=== PATIENT | female | born 1945 | race African-American/Black ===

== ENCOUNTER → 2018-06-09 | Outpatient (CLI) | payer OTHER ==
[~2018-06-09] MED LIST: ALPHAGAN P5 ML OPHTHALMIC; ARTIFICIAL TEA1 EACH OPHTHALMIC; ASPIR 8181 M1 PO; ASPIR 8181 MG PO; ATORVASTATIN CA40 MG PO; BRILINTA90 MG PO; CALCIUM-MAG-ZI1 EACH PO; CINNAMON PO; CO Q-10100 MG PO; COMBIGAN EYE DR10 ML OPHTHALMIC; COZAAR 50 MG TA50 M2 PO; CRANBERRY500 M1 PO; ELIQUIS5 MG PO; FISH OIL 1,0001 EAC5 PO; HUMALOG MI100 UNIT/1 SUBQ; LANTUSSOLASTAR SUBQ; LASIX 40 MG TAB40 M1 PO; LIPITOR80 MG PO; LO-DOSE ASPIRIN81 M1 PO; LOPRESSOR25 PO; LYRICA100 MG PO; METFORMIN HCL500 MG PO; METOPROLOL SUCC25 M1 PO; MULTIVITAMINS1 EAC7 PO; NEPHROCAPS SOFT1 CAP PO; NEURONTIN 300M300 M2 PO; NITROGLYCERIN0.4 MG SUBLING; NITROSTAT0.3 MG SUBLING; NOVOLIN R100 UNIT/1 SUBQ; NOVOLOG100 UNIT/1 SUBQ; OMEPRAZOLE 20 M20 M1 PO; OMEPRAZOLE 20 M20 MG PO; PANTOPRAZOLE SO40 M1 PO; PLAVIX 75 MG TA75 M1 PO; POTASSIUM20 PO; SIMVASTATIN40 MG PO; TARKA 4-240 MG1 EACH PO; TOPROL XL50 MG PO; TRAVATAN 0.004%5 ML OPHTHALMIC; VERAPAMIL ER120 M1 PO; VITAMIN D1000 UNI1 PO; VITAMIN D400 UNI1 PO; VITAMIN E1000 UNI3 PO; VITAMINC500 PO; VYTORIN 10-201 EACH PO; VYTORIN 10-401 EACH PO; XALATAN2.5 ML OPHTHALMIC; ZANTAC 150MG T150 MG PO
--- NOTE | 2018-06-09 14:51 | 2DMMODE ---
[place] [address] 2 D/M-MODE ECHOCARDIOGRAM Name: CORRINE LOPEZ Room: [facility]#: [id number] Admission: 06/09/18 Attend Phys: Stevo Morales Discharge: Date of : 49 Date of Service: 06/09/18 1451 Report #: [id number] THIS REPORT FOR: //name// APPROVED REPORT Study performed: 06/09/2018 09:19:17 EXAM: Comprehensive 2D, Doppler, and color-flow Echocardiogram Patient Location: Out-Patient Status: routine BSA: 2.06 HR: 59 bpm BP: 118/60 mmHg Other Information Study Quality: Fair Indications CAD 2D Dimensions LVEF(%): 74.14 (>50%) IVSd: 12.51 (7-11mm) LVOT Diam: 20.19 (18-24mm) LVDd: 42.96 mm PWd: 12.17 (7-11mm) Ascending Ao: 22.82 (22-36mm) LVDs: 24.60 (25-40mm) Aortic Root: 22.43 mm Moreno's LVEF: 74.14 % Volumes Left Atrial Volume (Systole) LA ESV Index: 20.20 mL/m2 Aortic Valve AoV Peak Mejia.: 1.30 m/s AO Peak Gr.: 6.78 mmHg LVOT Max P.34 mmHg AO Mean Gr.: 4.00 mmHg LVOT Mean P.66 mmHg LVOT Max V: 0.91 m/s AO V2 VTI: 30.80 cm LVOT Mean V: 0.60 m/s DYLLAN (VTI): 2.41 cm2 LVOT V1 VTI: 23.19 cm Mitral Valve E/A Ratio: 0.71 MV Decel. Time: 225.84 [place] [address] 2 D/M-MODE ECHOCARDIOGRAM Name: CORRINE LOPEZ Room: [facility]#: [id number] Admission: 06/09/18 Attend Phys: Stevo Morales Discharge: Date of : 49 Date of Service: 06/09/18 1451 Report #: [id number] MV E Max Mejia.: 0.67 m/s MV PHT: 65.49 ms MVA (PHT): 3.36 cm2 TDI E/Lateral E': 11.17 E/Medial E': 7.44 Medial E' Mejia.: 0.09 m/s Lateral E' Mejia.: 0.06 m/s Pulmonary Valve PV Peak Mejia.: 0.68 m/s PV Peak Gr.: 1.85 mmHg Tricuspid Valve RAP Estimate: 5.00 mmHg TR Peak Gr.: 20.23 mmHg RVSP: 25.23 mmHg PA Pressure: 25.23 mmHg Left Ventricle The left ventricle is normal size. There is normal LV segmental wall motion. Mild concentric left ventricular hypertrophy. Left ventricular systolic function is normal. LVEF is 55-60%. Grade I - abnormal relaxation pattern. Right Ventricle The right ventricle is normal size. The right ventricular systolic function is normal. Atria Left atrium is borderline dilated. The right atrium size is normal. Aortic Valve The aortic valve is normal in structure. No aortic regurgitation is present. There is no aortic valvular stenosis. Mitral Valve The mitral valve is normal in structure. There is no mitral valve regurgitation noted. No evidence of mitral valve stenosis. Tricuspid Valve The tricuspid valve is normal in structure. Mild tricuspid regurgitation. Pulmonic Valve The pulmonary valve is normal in structure. There is no pulmonic [place] [address] 2 D/M-MODE ECHOCARDIOGRAM Name: LOPEZCORRINE Room: [facility]#: [id number] Admission: 06/09/18 Attend Phys: Stevo Morales Discharge: Date of : 49 Date of Service: 06/09/18 1451 Report #: [id number] Great Vessels The aortic root is normal in size. IVC is normal in size and collapses with >50% inspiration Pericardium There is no pericardial effusion. <Conclusion> Left ventricular systolic function is normal. LVEF is 55-60%. There is normal LV segmental wall motion. Mild concentric left ventricular hypertrophy. Grade I - abnormal relaxation pattern. Left atrium is borderline dilated. There is no aortic valvular stenosis. No aortic regurgitation is present. There is no mitral valve regurgitation noted. No evidence of mitral valve stenosis. Mild tricuspid regurgitation. <ELECTRONICALLY SIGNED> By: Neo Morillo MD, FACC 06/09/18 [phone] Neo Morillo MD, FACC /INF
== END ==
LOC: M.CRD 08:20
DX: I07.1 Rheumatic tricuspid insufficiency (principal); I25.10 Atherosclerotic heart disease of native coronary artery without angina pectoris; I10 Essential (primary) hypertension; I48.0 Paroxysmal atrial fibrillation

== ENCOUNTER 2018-09-14 09:04 | Observation (INO) | payer OTHER ==
[~2018-09-14] VITALS: Ht 165.1 cm; Wt 97.1 kg
[2018-09-14] VITALS (14 sets, daily range): BP systolic 142–1192; BP diastolic 55–80
[~2018-09-14 09:04] MED LIST changes: -ARTIFICIAL TEA1 EACH OPHTHALMIC; -ASPIR 8181 M1 PO; -HUMALOG MI100 UNIT/1 SUBQ; -LIPITOR80 MG PO; -NOVOLIN R100 UNIT/1 SUBQ
[2018-09-14 10:00] LABS: HEMATOCRIT 35.4 % (37.0-47.0); HEMOGLOBIN 11.1 gm/dL (12.0-15.0); MCH 24.5 pg (26.0-34.0); MCHC 31.5 g/dL (28.0-37.0); MPV 7.6 fl. (7.2-11.1); RBC 4.54 mil/uL (4.20-5.00); WBC 3.9 thou/uL (4.0-11.0)
[2018-09-14 10:08] LABS: ANION GAP 5 mmol/L (7-16); BUN 28 mg/dL (7-18); CALCIUM 9.6 mg/dL (8.5-10.1); CHLORIDE 104 mmol/L (98-107); CO2 31 mmol/L (21-32); GLUCOSE 140 mg/dL (70-99); POTASSIUM 4.1 mmol/L (3.5-5.1); SODIUM 140 mmol/L (136-145)
[2018-09-14 10:09] LABS: APTT 22.3 Seconds (25.0-31.3); PROTIME 10.4 Seconds (9.20-11.50)
[2018-09-14 10:12] LABS: ALBUMIN 3.9 g/dL (3.4-5.0); ALKALINE PHOSPHATASE 66 U/L (46-116); CHOLESTEROL 145 mg/dL (<200); HDL CHOLESTEROL 55 mg/dL (>40); LDL CHOLESTEROL 79 mg/dL (<100); SGOT 26 U/L (15-37); SGPT 35 U/L (30-65); TC:HDL 2.6 Ratio (Not establshd); TOTAL BILIRUBIN 0.5 mg/dL (<0.1-1.0); TOTAL PROTEIN 7.7 g/dL (6.4-8.2); TRIGLYCERIDE 57 mg/dL (<150); VLDL 11 mg/dL (<40)
[2018-09-14 10:13] LABS: SERUM ASSESSMENT Clear
[2018-09-14] MEDS ORDERED: HUMALOG MI100 UNIT/1 SUBQ (10:20)
[2018-09-14] MEDS ORDERED: NOVOLIN R100 UNIT/1 SUBQ (10:21)
[2018-09-14] MEDS ORDERED: VITAMINC500 PO (10:22)
[2018-09-14] MEDS ORDERED: LIPITOR80 MG PO (10:22)
[2018-09-14] MEDS ORDERED: ARTIFICIAL TEA1 EACH OPHTHALMIC (10:23)
[2018-09-14] MEDS ORDERED: ELIQUIS5 MG PO (10:24)
[2018-09-14] MEDS ORDERED: PLAVIX 75 MG TA75 M1 PO (10:26)
[2018-09-15] VITALS: BP 130/64
[2018-09-15 04:00] VITALS: BP 154/64
[2018-09-15 05:42] LABS: HEMATOCRIT 30.8 % (37.0-47.0); MCH 25.1 pg (26.0-34.0); MCHC 32.4 g/dL (28.0-37.0); MCV 77.5 fL (80.0-100.0); MPV 7.7 fl. (7.2-11.1); RBC 3.97 mil/uL (4.20-5.00); RDW-CV 17.2 % (10.5-14.5); WBC 6.8 thou/uL (4.0-11.0)
[2018-09-15 06:02] LABS: ALKALINE PHOSPHATASE 49 U/L (46-116); ANION GAP 7 mmol/L (7-16); BUN 25 mg/dL (7-18); CALCIUM 8.6 mg/dL (8.5-10.1); CHLORIDE 107 mmol/L (98-107); CO2 27 mmol/L (21-32); GLUCOSE 239 mg/dL (70-99); POTASSIUM 4.4 mmol/L (3.5-5.1); SGOT 21 U/L (15-37); SGPT 30 U/L (30-65); SODIUM 141 mmol/L (136-145); TOTAL BILIRUBIN 0.5 mg/dL (<0.1-1.0); TROPONIN-I LEVEL <0.06 ng/mL (<0.06)
[2018-09-15 08:00] VITALS: BP 146/65; BP 183/80
[2018-09-15] MEDS ORDERED: ASPIR 8181 M1 PO (09:52)
[2018-09-15] MEDS ORDERED: NITROGLYCERIN0.4 MG SUBLING (09:52)
[2018-09-15 12:28] VITALS: BP 157/86
--- NOTE | 2018-09-15 17:02 | EKG ---
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1945 Requested By: Chirag Robertson Order Number: [id number] Randa MD: Chirag Robertson Measurements Intervals [place] Rate: 56 P: 40 NV: 198 QRS: 6 QRSD: 107 T: 71 QT: 417 QTc: 403 Interpretive Statements Sinus rhythm Borderline T abnormalities, lateral leads Compared to ECG 03/04/2017 07:53:34 Poor R-wave progression no longer present T-wave abnormality still present Electronically Signed On 09-15-2018 17:01:58 CDT by Chirag Robertson [email or web address] <ELECTRONICALLY SIGNED> By: Chirag Robertson MD, FAC 09/15/18 1701 0955 0955 Chirag Robertson MD, LOCATED WITHIN [facility] /EPI
--- NOTE | 2018-09-15 17:06 | EKG ---
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1945 Requested By: Chirag Robertson Order Number: [id number] Randa MD: Chirag Robertson Measurements Intervals [place] Rate: 56 P: 74 TN: 202 QRS: -25 QRSD: 110 T: 109 QT: 432 QTc: 417 Interpretive Statements Sinus rhythm Borderline left axis deviation Anterior infarct, old Nonspecific T abnormalities, lateral leads Compared to ECG 03/04/2017 07:53:34 Myocardial infarct finding now present Poor R-wave progression persists T-wave abnormality still present Electronically Signed On 09-15-2018 17:05:55 CDT by Chirag Robertson [email or web address] <ELECTRONICALLY SIGNED> By: Chirag Robertson MD, FACC 09/15/18 1705 1339 1339 Chirag Robertson MD, FAC /EPI
--- NOTE | 2018-09-15 17:11 | EKG ---
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1945 Requested By: Chirag Robertson Order Number: [id number] Reading MD: Chirag Robertson Measurements Intervals [place] Rate: 72 P: 63 AR: 205 QRS: 18 QRSD: 106 T: 65 QT: 393 QTc: 431 Interpretive Statements Sinus rhythm Abnormal R-wave progression, late transition Compared to ECG 03/04/2017 07:53:34 Poor R-wave progression no longer present T-wave abnormality no longer present Electronically Signed On 09-15-2018 17:10:59 CDT by Chirag Robertson [email or web address] <ELECTRONICALLY SIGNED> By: Chirag Robertson MD, FACC 09/15/18 1710 0809 0809 Chirag Robertson MD, [facility] /EPI
--- NOTE | 2018-09-16 10:57 | CARD ---
[address] [address] CARDIAC CATH REPORT Name: LOPEZCORRINE B Room: [address] Christopher Villanueva#: [id number] Admission: 09/14/18 Attend Phys: Chirag Robertson MD, Discharge: 09/15/18 Date of : 49 Report #: [id number] THIS REPORT FOR: //name// APPROVED REPORT Study performed: 09/14/2018 10:47:33 Patient Details Patient Status: Out-Patient Room #: The patient is a 73 year-old female Event Personnel Chirag Robertson Student Financial Aid Manager, Blanca Amaya RN Senior Electronics Design Engineer, Cristina Edwards Monitor, Fan Martinez (R) Scrub Procedures Performed Art Access - R femoral artery* Left Heart Cath w/LT VGram [id number] LHCLV KAREN w/Atherectomy Single LAD [id number] DESATH , Right transfemoral approach Indication Positive stress test, Chest pain Risk Factors Hypercholesterolemia, Hypertension, Diabetes Previous Procedures/Diagnoses Previous PCI Admission/Lab Medications/Medications given during procedure Aspirin, Platelet Aff. Inhib., Angiomax bolus and infusion Procedure Narrative The patient was brought electively to the Cardiac Catheterization Laboratory and was prepped and draped in a sterile manner. The right femoral was infiltrated with 1% Lidocaine subcutaneous anesthesia. A [place] 6 FR sheath was inserted into the right femoral artery. Coronary angiography was performed using coronary diagnostic catheters. The right coronary system was accessed and visualized with a Diagnostic catheter. The left coronary system was accessed and visualized with a Diagnostic catheter. The left ventricle was accessed and visualized with a Diagnostic catheter. Left ventricular/Aortic Valve gradient assessed via catheter pullback. Left ventriculogram was performed in STREET projection[place] [address] CARDIAC CATH REPORT Name: CORRINE LOPEZ Kelly Room: [address]#: [id number] Admission: 09/14/18 Attend Phys: Chirag Robertson MD, Discharge: 09/15/18 Date of : 49 Report #: [id number] femoral angiogram was performed . Closure device was deployed with a Fr Angioseal STS 6Fr. The patient tolerated the procedure well and there were no complications associated with the procedure. There was no hematoma. Intraoperative Conscious Sedation Sedation start time: 1115 Case end Time: 1242 Fentanyl 250.0 mcg Versed 1 mg Dose: 2896 mGy Contrast Type and Amount: Visipaque 500 ml Coronary Angiography The patient's coronary anatomy is right dominant. Diagnostic Cath Left Main 0% narrowing LAD 80% proximal LAD stenosis with 80% mid LAD in-stent restenosis Circumflex 30% proximal narrowing with 50% mid vessel narrowing and 75% narrowing of a subbranch of the distal circumflex Right Coronary 30 percent proximal with 50% mid vessel narrowing, this being a dominant vessel Left Ventriculography The left ventricle is normal in size with normal contractility. The left ventricular ejection fraction is estimated to be 60%. Left ventricular wall motion abnormalities are not present. There is no mitral insufficiency. IVUS Intravascular Ultrasound was performed on the proximal LAD vessel. Fractional Flow [place] was performed on the 80 vessel. A 3 Guide Catheter was used to engage the ostium. Hemodynamics The aortic pressure is 139/57 mmHg with a mean of 82 mmHg. The left ventricular pressure is 147/10 mmHg with a mean of mmHg. The left ventricular end diastolic pressure is 17 mmHg. There was no gradient across the aortic valve upon pullback. PCI Technique Lesion Anticoagulation was achieved with Angiomax. Percutaneous coronary intervention was performed on the mid left anterior descending artery segment. The lesion stenosis prior to intervention was 80% [place] [address] CARDIAC CATH REPORT Name: CORRINE LOPEZ Room: [address] Christopher Villanueva#: [id number] Admission: 09/14/18 Attend Phys: Chirag Robertson MD, Discharge: 09/15/18 Date of : 49 Report #: [id number] flow. A 6FR XB LAD 3.0 100CM Guide Catheter was used to engage the ostium. A IG: BMW 190cm Interventional Guidewire was used to cross the lesion. BALLOON DILATION A Balloon catheter NC Trek RX 2.25x12 was inserted and inflated up to 16.00atm for 14seconds. Additional Inflation: 18.00atm for 11seconds. Angiosculpt 2.5x 10mm cutting balloon inflated 6 ludy for 20 seconds. Additional Inflation of 8 ludy for 20 seconds. Additional inflation of 9 ludy for 23 seconds. Additional Inflation for 10 ludy for 14 seconds. STENT DEPLOYMENT A drug-eluting stent Xience Alpine RX 2.25X12 was inserted and inflated up to 18.00atm for 7seconds. Additional Inflation: 18atm for 12seconds. Final angiography reveals 0 % stenosis with LIS 3 flow. PCI Technique Lesion Percutaneous coronary intervention was performed on the proximal LAD. The lesion stenosis prior to intervention was 80% with LIS 3 flow. STENT DEPLOYMENT A drug-eluting stent Xience Alpine RX 3.0X8 was inserted and inflated up to 14.00atm for 8seconds. Additional Inflation: 17.00atm for 8seconds. Additional Inflation: 18.00atm for 8seconds. Final angiography reveals 15 % stenosis with LIS 3 flow. Conclusion #1 coronary artery disease characterized by the following: A 80% proximal LAD stenosis with 80% mid vessel in-stent restenosis B nondominant circumflex with 30% proximal and 50% mid and 75% distal sub- branch narrowings C dominant right coronary artery with 30% proximal and 50% mid vessel narrowing #2 mild systemic systolic hypertension with mild elevation of left ventricular end-diastolic [place] [address] CARDIAC CATH REPORT Name: CORRINE LOPEZ Room: [address] Christopher Villanueva#: [id number] Admission: 09/14/18 Attend Phys: Chirag Robertson MD, Discharge: 09/15/18 Date of : 49 Report #: [id number] #3 successful atherotomy/atherectomy with stenting of the mid LAD at the site of 80% stenosis with 0% residual narrowing #4 successful percutaneous coronary intervention with deployment of a drug-eluting stent at the site of 80% proximal LAD stenosis with 10% residual narrowing and LIS-3 flow the distal vessel Recommendations Daily ASA with Plavix for at least one year Cardiac Risk Reduction Program Medications Administered Aspirin (any) Clopidogrel Diagnostic Cath Approved by: Chirag Robertson MD Date/Time: 09/16/2018 10:55:10 <ELECTRONICALLY SIGNED> By: Chirag Robertson MD, FACC 09/16/18 1057 1057 1057Chirag Robertson MD, FACC /INF
--- NOTE | 2018-09-16 16:04 | H ---
[address] [place] [address] [address] HISTORY AND PHYSICAL Name: CORRINE LOPEZ Kelly Room: [address] Christopher Villanueva#: [id number] Admission: 09/14/18 Attend Phys: Chirag Robertson MD, Discharge: 09/15/18 Date of : 49 Report #: [id number] THIS REPORT FOR: //name// CC: Chirag Weston DATE OF SERVICE: 09/14/2018 HISTORY OF PRESENT ILLNESS: The patient is a very pleasant 73-year-old female with known coronary artery disease status post multivessel stenting with most recent stenting of the LAD 18 months ago. Recently, she has noted chest discomfort with exertion. There is a history of hypertension, type 2 diabetes and hyperlipoproteinemia. The patient underwent recent nuclear stress testing, which demonstrated anteroapical ischemia. Past medical history is remarkable for hypertension, hypercholesterolemia, type 2 diabetes and atrial fibrillation treated with oral anticoagulation with Eliquis. She has been maintained on single antiplatelet therapy with Plavix and Eliquis in the context of prior atrial fibrillation. MEDICATIONS: Additional cardiac medicines include atorvastatin 80 mg daily, furosemide 40 mg daily, insulin both NPH and regular in varying doses, losartan 25 mg daily, metformin 1000 mg daily, metoprolol 25 mg b.i.d., multivitamins, and verapamil sustained release 120 mg daily. PAST MEDICAL HISTORY: Remarkable for diabetes, hypertension and weight excess. SOCIAL HISTORY: The patient lives by herself. She has 1 son and 1 daughter. She neither drinks nor smokes. REVIEW OF SYSTEMS: Remarkable for the following: PULMONARY: She had a relatively recent pneumonia and required hospitalization in [place] for same. CARDIOVASCULAR: She has in addition to the aforementioned chest discomfort, prior atrial fibrillation, has been anticoagulated with Eliquis. ALLERGIC AND IMMUNOLOGIC: She denies medication allergies. PHYSICAL EXAMINATION: GENERAL: Demonstrates an overweight elderly black female, in no acute distress. VITAL SIGNS: Blood pressure 150/70, pulse rate 74, respirations are 18 [place] [address] HISTORY AND PHYSICAL Name: CORRINE LOPEZ Kelly Room: [address] Christopher Villanueva#: [id number] Admission: 09/14/18 Attend Phys: Chirag Robertson MD, Discharge: 09/15/18 Date of : 49 Report #: [id number] NECK: Jugular venous pressure is normal with carotids being 1-2+. HEENT: No scleral icterus. No thyromegaly. Oral mucosa is moist. CHEST: Clear. CARDIAC: Reveals normal first and second heart sounds with a soft systolic murmur and a question of an S4 gallop. ABDOMEN: Modestly obese and nontender. EXTREMITIES: Without edema with intact femoral, pedal and radial pulses. DIAGNOSTIC DATA: Recent nuclear stress test revealed inducible anteroapical ischemia. IMPRESSION: 1. Recent chest pain suggesting recurrent angina. 2. Abnormal nuclear stress test with inducible anteroapical ischemia. 3. Coronary artery disease status post multivessel percutaneous coronary intervention remotely. 4. Hypercholesterolemia. 5. Type 2 diabetes. 6. History of paroxysmal atrial fibrillation. 7. Weight excess. RECOMMENDATIONS: Given the aforementioned clinical scenario with recurrent chest pain suggesting recurrent angina and an abnormal nuclear stress test with a moderate to large anteroapical induced ischemic defect, I would recommend proceeding with recatheterization to document current coronary anatomy and prospects for subsequent therapeutic intervention. The procedure and risks have been discussed with the patient. <ELECTRONICALLY SIGNED> By: Chirag Robertson MD, FACC 09/16/18 1604 1407 1421Joxi Robertson MD, FACC /nt
--- NOTE | 2018-09-16 16:05 | D ---
[facility] [address] [place] [address] DISCHARGE SUMMARY Name: CORRINE LOPEZ Room: [address] Christopher Villanueva#: [id number] Admission: 09/14/18 Attend Phys: Chirag Robertson MD, Discharge: 09/15/18 Date of : 49 Report #: [id number] THIS REPORT FOR: //name// CC: Chirag Weston DATE OF SERVICE: 09/15/2018 FINAL DISCHARGE DIAGNOSES: 1. Coronary artery disease. 2. Recently abnormal nuclear stress test. 3. Status post atherectomy with stenting of the mid left anterior descending and stenting of the proximal left anterior descending. 4. Paroxysmal atrial fibrillation. 5. Hypertension. 6. Hyperlipoproteinemia. 7. History of transient ischemic attack. 8. Type 2 diabetes. PROCEDURES: 09/14/2018 -- left heart catheterization, left ventriculography, selective coronary arteriography, and atherectomy with stenting of the mid LAD with stenting of the proximal LAD. HISTORY OF PRESENT ILLNESS: The patient is a very pleasant 73-year-old black female with longstanding coronary artery disease status post remote multivessel stenting, most recently in 03/2017. Recently, she was noted to have some chest heaviness and fullness and a nuclear stress test demonstrated inducible anteroapical ischemia. The patient has a history of hypertension, hyperlipoproteinemia, paroxysmal atrial fibrillation and prior TIA. She also has type 2 diabetes. The patient underwent cardiac catheterization with stenting of the proximal LAD and atherectomy with stenting of the mid LAD. There was a good angiographic result with a 10 and 0% residual narrowing respectively in the proximal and mid LAD site and LIS 3 flow in the distal vessel. There was modest circumflex and right coronary disease, which did not require intervention. The patient did well post-procedurally and there was good hemostasis of the right femoral site of catheterization. LABORATORY DATA: On 09/15/2018 revealed sodium of 141, potassium 4.4, BUN 25, creatinine 1.0. Hemoglobin 10.0, white blood cell count 6800, platelets 267,000. DISCHARGE MEDICATIONS: The patient was discharged to home on 09/15/2018 [place] [address] DISCHARGE SUMMARY Name: DEVON LOPEZYCE Kelly Room: [address] Christopher Villanueva#: [id number] Admission: 09/14/18 Attend Phys: Chirag Robertson MD, Discharge: 09/15/18 Date of : 49 Report #: [id number] apixaban 5 mg b.i.d. in the context of prior atrial fibrillation, ascorbic acid 500 mg daily, atorvastatin 80 mg daily, Alphagan eyedrops one drop t.i.d., Plavix 75 mg daily with a 600 mg florecita-procedural dose, artificial tears daily, furosemide 40 mg daily, Humalog 75/25 NPL insulin 50 units subcutaneously at bedtime, regular insulin a.c., Xalatan eyedrops, metformin 1000 b.i.d. to be resumed on 09/17/2018, metoprolol 25 mg b.i.d., multivitamins, fish oil 1000 mg b.i.d., ranitidine 150 mg b.i.d., verapamil 120 mg sustained release daily and p.r.n. sublingual nitroglycerin. I will plan to see her in the office in 4-6 weeks. <ELECTRONICALLY SIGNED> By: Chirag Robertson MD, FACC 09/16/18 1605 1326 1359Joxi Robertson MD, FACC /nt
== END 2018-09-15 13:32 | disposition home or self-care (01) ==
LOC: M.CL 09:04 → M.2W 13:05 → M.TBA-CV 13:05 → M.2W 16:20
PROVIDERS: ADMIT Internal Medicine
DX: I25.119 Atherosclerotic heart disease of native coronary artery with unspecified angina pectoris (principal); I48.0 Paroxysmal atrial fibrillation; E78.00 Pure hypercholesterolemia, unspecified; I10 Essential (primary) hypertension; I25.89 Other forms of chronic ischemic heart disease; E11.9 Type 2 diabetes mellitus without complications; E66.3 Overweight; Z79.01 Long term (current) use of anticoagulants; Z79.02 Long term (current) use of antithrombotics/antiplatelets; Z79.4 Long term (current) use of insulin; Z86.73 Personal history of transient ischemic attack (TIA), and cerebral infarction without residual deficits

== ENCOUNTER → 2020-02-15 | Outpatient (CLI) | payer OTHER ==
[~2020-02-15] MED LIST changes: +ARTIFICIAL TEA1 EACH OPHTHALMIC; +ASPIR 8181 M1 PO; +HUMALOG MI100 UNIT/1 SUBQ; +LIPITOR80 MG PO; +NOVOLIN R100 UNIT/1 SUBQ
--- NOTE | 2020-02-15 13:30 | 2DMMODE ---
[place] [address] 2 D/M-MODE ECHOCARDIOGRAM Name: CORRINE LOPEZ Room: [facility]#: [id number] Admission: 02/15/20 Attend Phys: Stevo Morales Discharge: Date of : 49 Date of Service: 02/15/20 1328 Report #: [id number] THIS REPORT FOR: cc: Ezequiel Weston MD, Ram MD Liston, Michael J. MD [facility] ~ APPROVED REPORT Study performed: 02/15/2020 09:37:38 EXAM: Comprehensive 2D, Doppler, and color-flow Echocardiogram Patient Location: Out-Patient BSA: 2.06 HR: 62 bpm BP: 152/92 mmHg Other Information Study Quality: Fair Indications CAD Hypertension/HDD 2D Dimensions IVSd: 11.56 (7-11mm) LVOT Diam: 19.79 (18-24mm) LVDd: 38.71 mm PWd: 12.46 (7-11mm) Ascending Ao: 24.74 (22-36mm) LVDs: 21.93 (25-40mm) Aortic Root: 28.89 mm Volumes Left Atrial Volume (Systole) LA ESV Index: 13.50 mL/m2 Aortic Valve AoV Peak Mejia.: 1.32 m/s AO Peak Gr.: 6.97 mmHg LVOT Max P.14 mmHg AO Mean Gr.: 3.72 mmHg LVOT Mean P.50 mmHg LVOT Max V: 0.89 m/s AO V2 VTI: 28.26 cm LVOT Mean V: 0.56 m/s DYLLAN (VTI): 2.06 cm2 LVOT V1 VTI: 18.90 cm [place] [address] 2 D/M-MODE ECHOCARDIOGRAM Name: CORRINE LOPEZ Room: [facility]#: [id number] Admission: 02/15/20 Attend Phys: Stevo Morales Discharge: Date of : 49 Date of Service: 02/15/20 1328 Report #: [id number] E/A Ratio: 0.74 MV Decel. Time: 217.55 ms MV E Max Mejia.: 0.66 m/s MV PHT: 63.09 ms MVA (PHT): 3.49 cm2 TDI E/Lateral E': 13.20 E/Medial E': 8.25 Medial E' Mejia.: 0.08 m/s Lateral E' Mejia.: 0.05 m/s Pulmonary Valve PV Peak Mejia.: 0.81 m/s PV Peak Gr.: 2.63 mmHg Left Ventricle The left ventricle is normal size. There is normal LV segmental wall motion. Mild concentric left ventricular hypertrophy. Left ventricular systolic function is normal. LVEF is 55-60%. Grade I - abnormal relaxation pattern. Right Ventricle The right ventricle is normal size. The right ventricular systolic function is normal. Atria The left atrium size is normal. The right atrium size is normal. Aortic Valve The aortic valve is normal in structure. No aortic regurgitation is present. There is no aortic valvular stenosis. Mitral Valve The mitral valve is normal in structure. There is no mitral valve regurgitation noted. No evidence of mitral valve stenosis. Tricuspid Valve The tricuspid valve is normal in structure. There is no tricuspid valve regurgitation noted. Pulmonic Valve The pulmonary valve is normal in structure. There is no pulmonic valvular regurgitation. Great Vessels The aortic root is normal in size. The inferior vena cava [place] [address] 2 D/M-MODE ECHOCARDIOGRAM Name: CORRINE LOPEZ Room: [facility]#: [id number] Admission: 02/15/20 Attend Phys: Stevo Morales Discharge: Date of : 49 Date of Service: 02/15/20 1328 Report #: [id number] visualized. Pericardium There is no pericardial effusion. <Conclusion> The left ventricle is normal size. Mild concentric left ventricular hypertrophy. Left ventricular systolic function is normal. LVEF is 55-60%. Grade I - abnormal relaxation pattern. <ELECTRONICALLY SIGNED> By: Maged Curry MD, FACC 02/15/20 1328 1328 1328 Maged Curry MD, FACC /INF
== END ==
LOC: M.CRD 09:42
DX: I11.9 Hypertensive heart disease without heart failure (principal); I25.10 Atherosclerotic heart disease of native coronary artery without angina pectoris; Z88.2 Allergy status to sulfonamides

== ENCOUNTER 2021-05-29 19:12 | Emergency (ER) | payer OTHER ==
[~2021-05-29] VITALS: Ht 167.6 cm; Wt 104.3 kg
--- NOTE | ~2021-05-29 | EMS ---
[place] [address] EMS Patient Care Report Name: ROSETTA LOPEZ [id number] Admission: 05/29/21 Attend Phys: Discharge: Date of : 49 Report #: [id number] THIS REPORT FOR: //name// Report Transmitted: 05/29/2021 19:05 EMS Care Summary [facility] Incident [id number] @ 05/29/2021 17:51 Incident Location [address] [place] [address] Patient ROSETTA LOPEZ Female, 76 Years 1945 Patient Address [address] [place] [address] Patient Allergies Other drug allergy, Patient Medications Eliquis, Amlodipine, Carvedilol, Insulin, Atorvastatin, Clopidogrel, ASA, Isosorbide, Gabapentin, Furosemide, Chief Complaint Hypoglycemia Disposition Transported No Lights/[place] Dispatch Reason Altered Mental Status Transported To [facility] Narrative [facility] was dispatched to a local residence for a patient who was unresponsive, but breathing. [facility] responded from the station and arrived on scene without incident. [place] [id number] EMS Patient Care Report Name: ROSETTA LOPEZ Room: [facility]#: [id number] Admission: 05/29/21 Attend Phys: Discharge: Date of : 49 Report #: [id number] Upon arrival to the scene, the patient, (Rosetta Lopez) was found lying on her left side in bed. Rosetta was responsive to painful stimuli, but would follow commands when prompted. She was noted to be incontinent of urine, and she had a significant amount of drool noted on the pillow she was lying on. Rosetta's daughter, (Liza) was on scene. She stated that Rosetta has a history of diabetes. [place] initial blood glucose was found as documented in the vitals tab. An IV was administered as documented in the flowchart of this report, and she was treated with Dextrose 10% (D10) ad documented in the flowchart of this report, in order to address the hypoglycemia. Following the administration of the D10, Rosetta's mental status improved to normal levels. Rosetta woke up, and then stated she needed to go to the bathroom. Rosetta was assisted to her bedside commode, where she began to urinate. She then began to complain of left shoulder pain. She stated the pain was a 9/10, and described it as aching. She stated that moving and palpation made the pain worse. She denied anything making it any better, and stated it was constant. She was unsure when the pain began. Rosetta was assisted to a standing position with a team lift, and was then placed on the cot. She was placed in the semi-juarez's position, covered with a blanket, and all seat belts were applied. Rosetta was taken to the ambulance and loaded without incident. Once Rosetta was in the back of the ambulance, Rosetta again stated that her left shoulder hurt. She was placed on the cardiac cath lab technologist, and 5-Lead and 12-Lead EKGs were obtained. The cardiac cath lab technologist showed a sinus rhythm without ectopy or elevation. Following the EKGs, the patient advised that she had allergies, but was unsure what those allergies were. Liza had already left the scene, so the allergies were unable to be obtained. Therefore, the advanced life support pain management pathway per [facility] was unable to be implemented. Non-emergency transport to the hospital began. During transport, an ice pack was placed on the patients shoulder to help ease the pain, however, she stated it was cold and that she did not want that on her any longer. It was removed. The patient's condition remained unchanged during transport. Report was called to the receiving hospital. Upon arrival to the hospital, Rosetta was unloaded from the ambulance and taken inside of the facility. She was taken into the appropriate room, and was then transferred to the hospital bed. Report was given to nursing staff, signatures were obtained, and patient care was transferred. [facility] returned to service upon entering coverage area. Initial Vitals @18:06P: 90,R: 14,BP: 140/70,GCS: 15,Glucose: 36,SpO2: 98,Revised Trauma: 12, @18:51P: 99,R: 14,BP: 137/110,GCS: 15,SpO2: 99,Revised Trauma: 12, @19:01P: 92,R: 14,BP: 134/57,GCS: 15,SpO2: 97,Revised Trauma: 12, [address] [place] [address] EMS Patient Care Report Name: ROSETTA LOPEZ Room: [facility]#: [id number] Admission: 05/29/21 Attend Phys: Discharge: Date of : 49 Report #: [id number] @18:31P: 105,R: 14,BP: 139/71,Pain: 9/10,GCS: 15,Glucose: 136,SpO2: 96,Revised Trauma: 12, @18:34P: 101,R: 14,Pain: 9/10,GCS: 15,SpO2: 98, Assessments @18:03MENTAL:Confused,Person Oriented,SKIN:Diaphoresis,HEENT:Eyes: Left Pupil: 3-mm,Eyes: Right Pupil: 3-mm,LUNG SOUNDS:ABDOMEN:PELVIS//GI:Incontinence,EXTREMITIES:Capillary Refill: Right Upper: < 2 Sec,PULSE:Radial: 2+ Normal,NEURO:@18:50MENTAL:Time Oriented,Event Oriented,Place Oriented,Person Oriented,SKIN:HEENT:Eyes: Left Pupil: 3-mm,Eyes: Right Pupil: 3-mm,LUNG SOUNDS:ABDOMEN:PELVIS//GI:EXTREMITIES:Left Arm: No Abnormalities,Right Arm: No Abnormalities,Left Leg: No Abnormalities,Right Leg: No Abnormalities,PULSE:NEURO: Impression Diabetic Hypoglycemia Procedures @18:05D10W 250cc (20 ga) Site: Forearm-LeftResponse: ImprovedSucceeded@18:06Dextrose 10% - 25 Grams (gms) - Intravenous (IV)Response: Improved@18:04ALS AssessmentResponse: UnchangedSucceeded@18:3412-Lead ECGResponse: UnchangedSucceeded Timeline 17:50,Call Received 17:51,Dispatched 17:53,En Route 17:56,On Scene 17:58,At Patient 18:04,ALS Assessment,Response: UnchangedSucceeded, 18:05,D10W 250cc 20 ga Site: Forearm-Left,Response: ImprovedSucceeded, 18:06,Dextrose 10% - 25 Grams (gms) - Intravenous (IV),Response: Improved 18:06,BP: 140/70 M,PULSE: 90,RR: 14 R,SPO2: 98 Ox,ETCO2: ,B,PAIN: ,GCS: 15, 18:31,BP: 139/71 M,PULSE: 105,RR: 14 R,SPO2: 96 Ox,ETCO2: ,B,PAIN: 9,GCS: 15, 18:34,12-Lead ECG,Response: UnchangedSucceeded, 18:34,BP: / M,PULSE: 101,RR: 14 R,SPO2: 98 Ox,ETCO2: ,BG: ,PAIN: 9,GCS: 15, 18:35,Depart Scene 18:51,BP: 137/110 M,PULSE: 99,RR: 14 R,SPO2: 99 Ox,ETCO2: ,BG: ,PAIN: ,GCS: 15, 19:01,BP: 134/57 M,PULSE: 92,RR: 14 R,SPO2: 97 Ox,ETCO2: ,BG: ,PAIN: ,GCS: 15, 19:10,At Destination 19:48,Call Closed Disclaimer v1.1 Copyright 2020 [place] [address] EMS Patient Care Report Name: ROSETTA LOPEZ Room: [facility]#: [id number] Admission: 05/29/21 Attend Phys: Discharge: Date of : 49 Report #: [id number] This EMS Care Summary contains data elements from the applicable legal record (which may be displayed differently). It is designed to provide pertinent information for the following purposes: continuity of care, clinical quality, and state data reporting. The complete legal record is available to ED staff and administrators of the receiving hospital in [facility]'s Patient Tracker. All data is provided "as is."
[2021-05-29 19:36] LABS: URINE BILIRUBIN NEGATIVE (Negative); URINE CLARITY CLEAR; URINE COLOR YELLOW; URINE LEUKOCYTES-REFLEX NEGATIVE (Negative); URINE NITRITE-REFLEX NEGATIVE (Negative); URINE UROBILINOGEN 0.2 E.U./dl (0.2-1.0)
[2021-05-29] MEDS ORDERED: MONTELUKAST SODI4 M1 PO (19:43)
[2021-05-29] MEDS ORDERED: HUMULIN N100 UNIT/1 SUBQ (19:43)
[2021-05-29] MEDS ORDERED: COZAAR 25 MG TA25 M1 PO (19:44)
[2021-05-29] MEDS ORDERED: ISOSORBIDE DINI30 MG PO (19:44)
[2021-05-29] MEDS ORDERED: NEURONTIN100 MG PO (19:45)
[2021-05-29] MEDS ORDERED: CARVEDILOL25 MG PO (19:45)
[2021-05-29] MEDS ORDERED: ELIQUIS5 MG (19:45)
[2021-05-29] MEDS ORDERED: PEPCID AC20 MG PO (19:46)
[2021-05-29] MEDS ORDERED: TYLENOL325 M1 PO (19:46)
[2021-05-29 19:48] LABS: ABSOLUTE BASOPHILS 0.1 thou/uL (0.0-0.2); ABSOLUTE LYMPHOCYTES 1.1 thou/uL (0.8-5.3); ABSOLUTE MONOCYTES 0.4 thou/uL (0.0-1.2); ABSOLUTE NEUTROPHILS 6.8 thou/uL (1.6-8.1); BASOPHILS 0.7 %; EOSINOPHILS 0.2 %; HEMATOCRIT 41.6 % (37.0-47.0); HEMOGLOBIN 14.1 gm/dL (12.0-15.0); LYMPHOCYTES 13.1 %; MCH 27.8 pg (26.0-34.0); MCHC 33.9 g/dL (28.0-37.0); MCV 82.1 fL (80.0-100.0); MONOCYTES 4.5 %; MPV 7.5 fl. (7.2-11.1); NUCLEATED RBCS 0 /100WBC; PLATELET COUNT* 328 thou/uL (150-400); POLYS 81.5 %; RBC 5.07 mil/uL (4.20-5.00); RDW-CV 15.4 % (10.5-14.5); WBC 8.4 thou/uL (4.0-11.0)
[2021-05-29 19:57] LABS: CALCIUM 9.6 mg/dL (8.5-10.1); CREATININE 0.8 mg/dL (0.6-1.3); POTASSIUM 4.9 mmol/L (3.5-5.1)
[2021-05-29 20:10] LABS: ALBUMIN 4.3 g/dL (3.4-5.0); TOTAL PROTEIN 8.7 g/dL (6.4-8.2)
[2021-05-29 21:00] LABS: URINE RBC >20 Many /HPF (0-2); URINE WBC-REFLEX 0-5 Rare /HPF (0-5)
[2021-05-29 21:01] LABS: BACTERIA-REFLEX 1-9 Few /HPF (None Seen); CRYSTALS None Seen /LPF (None Seen)
[2021-05-29 21:08] LABS: URINE GLUCOSE-RANDOM TRACE (Negative); URINE PROTEIN 2+ (Negative)
[2021-05-29 21:09] LABS: URINE BLOOD 3+ (Negative); URINE KETONES TRACE (Negative)
[2021-05-29 21:10] LABS: CASTS None Seen /LPF (None Seen)
[2021-05-29 21:14] VITALS: BP 149/81
[2021-05-29] MEDS ORDERED: CEPHALEXIN500 MG PO (21:20)
--- NOTE | 2021-05-30 09:31 | EKG ---
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 05/30/21 0931 1950 1950 Amadou Allen MD, [facility] /EPI
[2021-05-30] MEDS ORDERED: NORVASC5 M1 PO (22:13)
[2021-05-30] MEDS ORDERED: SINGULAIR 10 MG10 MG PO (22:16)
[2021-05-30] MEDS ORDERED: TIMOLOL 0.5%-LAT5 ML OPHTHALMIC (22:23)
== END 2021-05-29 21:39 | disposition home or self-care (01) ==
LOC: M.ERS 19:12
PROVIDERS: Personal Emergency Response Attendant
DX: E11.649 Type 2 diabetes mellitus with hypoglycemia without coma (principal); N39.0 Urinary tract infection, site not specified; I10 Essential (primary) hypertension; M19.90 Unspecified osteoarthritis, unspecified site; E78.5 Hyperlipidemia, unspecified; E66.9 Obesity, unspecified; Z68.37 Body mass index [BMI] 37.0-37.9, adult; Z86.73 Personal history of transient ischemic attack (TIA), and cerebral infarction without residual deficits; Z98.51 Tubal ligation status; Z90.49 Acquired absence of other specified parts of digestive tract; Z95.5 Presence of coronary angioplasty implant and graft; Z79.4 Long term (current) use of insulin; Z88.2 Allergy status to sulfonamides; Z88.1 Allergy status to other antibiotic agents; Z88.8 Allergy status to other drugs, medicaments and biological substances

== ENCOUNTER 2021-05-30 14:57 | Inpatient (IN) | payer OTHER ==
[~2021-05-30] VITALS: Ht 165.1 cm; Wt 105.7 kg
--- NOTE | ~2021-05-30 | CON ---
[facility] [address] [place] [address] CONSULTATION Name: CORRINE LOPEZ Kelly Room: [address] IN M.R.#: [id number] Admission: 05/30/21 Attend Phys: Diomedes Orozco Discharge: Date of : 49 Report #: [id number] THIS REPORT FOR: cc: Ezequiel Weston MD, Ram MD Khosla,Fadi Avalos MD ~ DOC #: [id number] Fadi Jordan MD DATE OF CONSULTATION: 05/31/2021 HISTORY OF PRESENT ILLNESS: A 76-year-old female patient who was evaluated by me for an episode of speech difficulty. The patient was discussed with Dr. Jeffries, who kindly updated me on this patient's history. This patient was admitted with an episode of aphasia and confusion that has resolved. She said that she had multiple TIAs before. She told me that she does not have any speech difficulty with those TIA. The patient feels back to her baseline. She is somewhat of a poor historian and could not give all the answer, but she is a very pleasant individual. She has a history of hypertension, hyperlipidemia, diabetes, diabetic neuropathy, obesity, coronary artery disease, multiple TIAs, osteoarthritis. I asked her if she has atrial fibrillation and why she is on anticoagulation, she could not tell me. In fact, she is on a combination of anticoagulation and dual antiplatelet therapy. She denies any new eye, ENT, cardiac, respiratory, GI, , musculoskeletal, constitutional, dermatological, hematological, psychiatric, throat, allergic symptom associated with present symptomatology. PAST MEDICAL HISTORY: Positive for TIA. FAMILY HISTORY: Negative for early age stroke. SOCIAL HISTORY: She says she does not drink alcohol. PHYSICAL EXAMINATION: NEUROLOGIC: The patient's examination indicates she is alert. She is responsive. She is able to follow simple commands, somewhat poor historian but she tries her best. She thinks her memory and fund of knowledge is at her baseline. Cranial nerve examinations appear unremarkable. Neuromuscular examination is symmetrical, but reflexes are absent in the lower extremities. She says she can feel the touch on both sides. Tone looks symmetrical. She does not have any ataxia in the upper extremity. There is no meningeal sign. GENERAL: She is morbidly obese. HEENT: Her hearing and vision looks adequate. VITAL SIGNS: Blood pressure is 160/79, pulse is 75, temperature is 97.7. EXTREMITIES: Pulses are difficult to feel, but she has no edema, [place]osis [place] [address] CONSULTATION Name: CORRINE LOPEZ Room: [address]#: [id number] Admission: 05/30/21 Attend Phys: Diomedes Orozco Discharge: Date of : 49 Report #: [id number] NECK: There is no thyroid mass. There is no carotid bruit. CARDIAC: Unremarkable. LUNGS: No respiratory difficulty was noticed. LABORATORY AND DIAGNOSTIC DATA: White count is 6.6. Her GFR is 59, but BUN is somewhat high and 26. IMPRESSION: History of transient ischemic attack with possible another episode of transient ischemic attack. Looking at the records, it does not look like she had a recent CT angiogram and I will get it done to make sure there is no pathology there. She is on dual antiplatelet therapy and anticoagulation, the question need to be addressed whether she needs to be on all those, that I will defer to admitting physician and the family doctor or whoever is prescribing that. I will check an EEG in this patient because she has multiple episodes where the workup has been unremarkable to make sure they are not nonconvulsive seizure. Thank you very much for this referral and if you have any questions, please feel free to contact me. Fadi Jordan MD PK/ORL By: 1342 1532Pkody Jordan MD /nt
[~2021-05-30 14:57] MED LIST changes: +CARVEDILOL25 MG PO; +CEPHALEXIN500 MG PO; +COZAAR 25 MG TA25 M1 PO; +ELIQUIS5 MG; +HUMULIN N100 UNIT/1 SUBQ; +ISOSORBIDE DINI30 MG PO; +MONTELUKAST SODI4 M1 PO; +NEURONTIN100 MG PO; +PEPCID AC20 MG PO; +TYLENOL325 M1 PO
[2021-05-30 15:48] LABS: ABSOLUTE BASOPHILS 0.1 thou/uL (0.0-0.2); ABSOLUTE LYMPHOCYTES 1.9 thou/uL (0.8-5.3); ABSOLUTE MONOCYTES 0.8 thou/uL (0.0-1.2); ABSOLUTE NEUTROPHILS 4.1 thou/uL (1.6-8.1); BASOPHILS 1.1 %; EOSINOPHILS 0.7 %; HEMATOCRIT 38.6 % (37.0-47.0); HEMOGLOBIN 13.1 gm/dL (12.0-15.0); LYMPHOCYTES 27.4 %; MCH 27.7 pg (26.0-34.0); MCHC 33.9 g/dL (28.0-37.0); MCV 81.7 fL (80.0-100.0); MONOCYTES 11.3 %; MPV 7.8 fl. (7.2-11.1); NUCLEATED RBCS 0 /100WBC; PLATELET COUNT* 293 thou/uL (150-400); POLYS 59.5 %; RBC 4.72 mil/uL (4.20-5.00); RDW-CV 15.9 % (10.5-14.5); WBC 6.9 thou/uL (4.0-11.0)
[2021-05-30 15:54] LABS: CALCIUM 9.5 mg/dL (8.5-10.1); CREATININE 1.7 mg/dL (0.6-1.3); POTASSIUM 4.5 mmol/L (3.5-5.1)
[2021-05-30 16:08] LABS: ALBUMIN 3.7 g/dL (3.4-5.0); CK-MB MASS 4.9 ng/mL (<0.5-3.6); TOTAL BILIRUBIN 0.7 mg/dL (<0.1-1.0); TOTAL PROTEIN 7.4 g/dL (6.4-8.2)
[2021-05-30 17:37] LABS: URINE BILIRUBIN NEGATIVE (Negative); URINE BLOOD TRACE (Negative); URINE CLARITY CLEAR; URINE COLOR YELLOW; URINE GLUCOSE-RANDOM NEGATIVE (Negative); URINE KETONES NEGATIVE (Negative); URINE LEUKOCYTES-REFLEX 1+ (Negative); URINE NITRITE-REFLEX NEGATIVE (Negative); URINE PROTEIN 1+ (Negative); URINE UROBILINOGEN 0.2 E.U./dl (0.2-1.0)
[2021-05-30 18:17] VITALS: BP 167/78
[2021-05-30 18:29] LABS: CRYSTALS None Seen /LPF (None Seen); HYALINE CASTS 0-3 Few /LPF (None Seen); MUCUS 0-3 Light strn/LPF (None Seen); SQUAMOUS >10 Many /LPF (0-3)
[2021-05-30 18:32] LABS: URINE RBC 0-2 Rare /HPF (0-2); URINE WBC-REFLEX 6-15 Few /HPF (0-5)
--- NOTE | 2021-05-30 19:57 | NUR ---
I ACCEPTED THE PATIENT AN ADMISSION FROM THE ED AT 1815. SHE IS ALERT AND ORIENTED X4 AND DAUGHTER IS AT THE BEDSIDE. SHE IS PLACED ON THE MONITOR AND SKIN IS INSPECTED. PUR WICK IS PLACED. SHE USED THE BEDSIDE COMMODE TO VOID, BUT UA WAS NOT COLLECTED (HADN'T SEEN ORDERS). CONFIRMED DAUGHTER'S CONTACT INFO INCASE WE HAVE QUESTIONS. ORDERS WERE ENTERED.
[2021-05-30 20:00] VITALS: BP 166/65
[2021-05-30] MEDS ORDERED: NORVASC5 M1 PO (22:13)
[2021-05-30] MEDS ORDERED: SINGULAIR 10 MG10 MG PO (22:16)
[2021-05-30] MEDS ORDERED: TIMOLOL 0.5%-LAT5 ML OPHTHALMIC (22:23)
[2021-05-30 23:32] VITALS: BP 158/53
--- NOTE | 2021-05-31 04:38 | NUR ---
PT ADMIT PER THIS SHIFT. ALERT ORIENTED FORGETFUL. UP TO BSC WITH ASSIST OF ONE AND WALKER. PT ALSO HAS CANE AT BEDSIDE. TELEMETRY SHOWS SR.
[2021-05-31 04:47] LABS: CHOLESTEROL 121 mg/dL (<200); HDL CHOLESTEROL 41 mg/dL (>40); LDL CHOLESTEROL 65 mg/dL (<100); TRIGLYCERIDE 76 mg/dL (<150); VLDL 15 mg/dL (<40)
[2021-05-31 04:55] LABS: SERUM ASSESSMENT CLEAR
[2021-05-31 05:15] VITALS: BP 148/78
[2021-05-31 06:21] LABS: CREATININE 1.1 mg/dL (0.6-1.3)
--- NOTE | 2021-05-31 07:15 | NUR ---
CHANGE OF SHIFT BEDSIDE REPORT GIVEN PATIENT SEEN AT BEDSIDE, IN BED ASLEEP ASSUMED PATIENT CARE
[2021-05-31 08:00] VITALS: BP 163/77
--- NOTE | 2021-05-31 11:01 | EKG ---
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
--- NOTE | 2021-05-31 11:39 | 2DMMODE ---
[place] [address] 2 D/M-MODE ECHOCARDIOGRAM Name: LOPEZCORRINE B Room: [address] Christopher Villanueva#: [id number] Admission: 05/30/21 Attend Phys: Fransisco Jeffries Discharge: Date of : 49 Date of Service: 05/31/21 1138 Report #: [id number] THIS REPORT FOR: cc: Ezequiel Weston MD, Ram MD Liston, Michael J. MD [facility] ~ APPROVED REPORT Study performed: 05/31/2021 10:11:17 EXAM: Comprehensive 2D, Doppler, and color-flow Echocardiogram Patient Location: In-Patient Room #: [facility] Status: routine BSA: 2.12 HR: 62 bpm BP: 148/78 mmHg Rhythm: NSR Other Information Study Quality: Good Indications CVA/TIA Echo Enhancing Agent Indication: Rule out Shunt Agent(s) / Amount(s) Used: Agitated Saline 10 cc 2D Dimensions IVSd: 11.81 (7-11mm) LVOT Diam: 19.99 (18-24mm) LVDd: 40.37 mm PWd: 11.84 (7-11mm) Ascending Ao: 26.57 (22-36mm) LVDs: 23.14 (25-40mm) Aortic Root: 26.31 mm Volumes Left Atrial Volume (Systole) LA ESV Index: 26.60 mL/m2 Aortic Valve AoV Peak Mejia.: 1.53 m/s AO Peak Gr.: 9.34 mmHg LVOT Max P.95 mmHg AO Mean Gr.: 5.03 mmHg LVOT Mean P.07 [place] [address] 2 D/M-MODE ECHOCARDIOGRAM Name: CORRINE LOPEZ Room: [address] [place]#: [id number] Admission: 05/30/21 Attend Phys: Fransisco Jeffries Discharge: Date of : 49 Date of Service: 05/31/21 1138 Report #: [id number] LVOT Max V: 1.11 m/s AO V2 VTI: 33.97 cm LVOT Mean V: 0.65 m/s DYLLAN (VTI): 2.38 cm2 LVOT V1 VTI: 25.77 cm Mitral Valve MV Mean Gr.: 2.77 mmHg E/A Ratio: 0.85 MV Decel. Time: 242.63 ms MV E Max Mejia.: 0.90 m/s MV PHT: 70.36 ms MVA (PHT): 3.13 cm2 TDI E/Lateral E': 12.86 E/Medial E': 8.18 Medial E' Mejia.: 0.11 m/s Lateral E' Mejia.: 0.07 m/s Pulmonary Valve PV Peak Mejia.: 0.89 m/s PV Peak Gr.: 3.16 mmHg Left Ventricle The left ventricle is normal size. There is normal LV segmental wall motion. There is normal left ventricular wall thickness. Left ventricular systolic function is normal. LVEF is 60-65%. Grade I - abnormal relaxation pattern. Right Ventricle The right ventricle is normal size. The right ventricular systolic function is normal. Atria The left atrium size is normal. Interatrial septum is intact without evidence of ASD or PFO. The right atrium size is normal. Aortic Valve The aortic valve is normal in structure. No aortic regurgitation is present. There is no aortic valvular stenosis. Mitral Valve There is mitral annular calcification. There is no mitral valve regurgitation noted. No evidence of mitral valve stenosis. Tricuspid Valve The tricuspid valve is normal in structure. Unable to assess PA pressure. Trace tricuspid regurgitation[place] [address] 2 D/M-MODE ECHOCARDIOGRAM Name: CORRINE LOPEZ Room: [address] M.R.#: [id number] Admission: 05/30/21 Attend Phys: Fransisco Jeffries Discharge: Date of : 49 Date of Service: 05/31/21 1138 Report #: [id number] The pulmonary valve is normal in structure. There is no pulmonic valvular regurgitation. Great Vessels The aortic root is normal in size. IVC is normal in size and collapses >50% with inspiration. Pericardium There is no pericardial effusion. <Conclusion> The left ventricle is normal size. There is normal left ventricular wall thickness. Left ventricular systolic function is normal. LVEF is 60-65%. Grade I - abnormal relaxation pattern. Interatrial septum is intact without evidence of ASD or PFO. There is mitral annular calcification. Trace tricuspid regurgitation. IVC is normal in size and collapses >50% with inspiration. <ELECTRONICALLY SIGNED> By: Maged Curry MD, FACC 05/31/21 1138 1138 1138 Maged Curry MD, FACC /INF
[2021-05-31 11:59] VITALS: BP 160/79
--- NOTE | 2021-05-31 12:21 | NUR ---
PT INDICATED SHE LIVED IN A "TRI-PLX" PT HAS NO STAIRS TO NAVIGATE. PT USES A CANE FOR GAIT. PT IS INDEPENDENT WITH ADLS. PT IS NOT CURRENT WITH HH. PT DENIES HX WITH SNF. PT STATED SHE HAS HX OF TIA'S. DTR IS SUPPORT AND ASSIST WITH ERRANDS AND SOME CHORES. CM TO CONT TO FOLLOW.
--- NOTE | 2021-05-31 15:30 | NUR ---
I have reviewed the documentation by Dasia Joseph from 05/31/21 to 05/31/21 and I concur with it. HARINDER MIRAMONTES
[2021-05-31 16:44] VITALS: BP 158/74
[2021-05-31 20:00] VITALS: BP 110/59
--- NOTE | 2021-06-01 00:59 | NUR ---
PT ALERT ORIENTED. INITALLY WAS PLANING ON NIGHT TIME DISCHARGE PENDING CT SCAN BEING DONE AND READ. HOWEVER DTR LIVES OUT OF AREA AND DID NOT WANT TO BE OUT LATE. DC PLANNED FOR 06/01 DAYTIME. DANCE THERAPIST TRACING SR.
[2021-06-01 01:44] VITALS: BP 122/54
[2021-06-01 02:06] LABS: GLYCOHEMOGLOBIN (HGB A1C) 6.7 % (4.8-5.6)
[2021-06-01 04:00] VITALS: BP 135/42
[2021-06-01 07:25] VITALS: BP 145/68
--- NOTE | 2021-06-01 10:13 | NUR ---
I have reviewed the documentation by JERONIMO BRONSON from 06/01/21 to 06/01/21 and I concur with it. MARYANA QUINTANA
[2021-06-01 10:21] VITALS: BP 145/68
[2021-06-01 11:44] VITALS: BP 118/50
--- NOTE | 2021-06-01 14:07 | NUR ---
PT GIVEN DISCHARGE INFORMATION, IV REMOVED. PT BELONGINGS GATHERED. PT LEFT VIA WHEELHCHAIR TO HOME.
[2021-06-05] MEDS ORDERED: ELIQUIS5 MG PO (13:57)
[2021-06-05] MEDS ORDERED: [UNRECOGNIZED DRUG - CODE] OPHTHALMIC (14:00)
[2021-06-05] MEDS ORDERED: CINNAMON500 MG PO (14:03)
[2021-06-05] MEDS ORDERED: FISH OIL 1,001000 M3 PO (14:04)
[2021-06-05] MEDS ORDERED: IPRAT-ALBUT 0.5-3 ML INH (14:07)
[2021-06-05] MEDS ORDERED: NITROSTAT0.4 M1 SUBLING (14:10)
[2021-06-05] MEDS ORDERED: zantac PO (14:12)
[2021-06-05] MEDS ORDERED: VERAPAMIL ER120 MG PO (14:13)
== END 2021-06-01 14:07 | disposition home or self-care (01) | DRG 69 ==
LOC: M.ERS 14:57 → M.2W 16:38 → M.TBA-ER 16:38 → M.2W 16:38
PROVIDERS: Family Medicine; ADMIT Internal Medicine; ATTEND Internal Medicine
DX: G45.9 Transient cerebral ischemic attack, unspecified (principal); G93.41 Metabolic encephalopathy; R47.01 Aphasia; N39.0 Urinary tract infection, site not specified; N17.9 Acute kidney failure, unspecified; Z20.822 Contact with and (suspected) exposure to COVID-19; I10 Essential (primary) hypertension; E78.5 Hyperlipidemia, unspecified; E66.9 Obesity, unspecified; I25.10 Atherosclerotic heart disease of native coronary artery without angina pectoris; M19.90 Unspecified osteoarthritis, unspecified site; E11.649 Type 2 diabetes mellitus with hypoglycemia without coma; R31.9 Hematuria, unspecified; Z68.38 Body mass index [BMI] 38.0-38.9, adult; Z90.49 Acquired absence of other specified parts of digestive tract; Z95.5 Presence of coronary angioplasty implant and graft; Z88.2 Allergy status to sulfonamides; Z88.8 Allergy status to other drugs, medicaments and biological substances

== ENCOUNTER → 2021-06-07 | Outpatient (CLI) | payer OTHER ==
[~2021-06-07] MED LIST changes: +CINNAMON500 MG PO; +FISH OIL 1,001000 M3 PO; +IPRAT-ALBUT 0.5-3 ML INH; +NITROSTAT0.4 M1 SUBLING; +NORVASC5 M1 PO; +SINGULAIR 10 MG10 MG PO; +TIMOLOL 0.5%-LAT5 ML OPHTHALMIC; +VERAPAMIL ER120 MG PO; +[UNRECOGNIZED DRUG - CODE] OPHTHALMIC; +zantac PO
--- NOTE | 2021-06-07 16:10 | CARDNUC ---
[place] [address] CARDIAC NUCLEAR IMAGING REPORT Name: CORRINE LOPEZ Room: [facility]#: [id number] Admission: 06/07/21 Attend Phys: Stevo Morales Discharge: Date of : 49 Date of Service: 06/07/21 1610 Report #: [id number] THIS REPORT FOR: cc: Ezequiel Weston MD, Ram MD Liston, Michael J. MD [facility] ~ APPROVED REPORT Study performed: 06/07/2021 11:42:12 Exam: Nuclear Stress Test Indication: Chest pain Patient Location: Out-Patient Stress Tech: Prema Bruno Stress Nurse: Hanny Rodriguez RN NM Tech:JAIME Chanel Ht: 5 ft 6 in Wt: 229 lbs BSA: 2.12 m2 BMI: 36.95 Medical History Medical History: CAD s/p stent, Diabetes, HTN, Hyperlipidemia Medications: asa, amlodipine, atorvastatin, carvedilol, eliquis, furosemide, isosorbide Allergies: sulfa tramadol Cardiac Risk Factors: Age, FHX of CAD, DM, HTN, Hyperlipidemia Previous Cardiac Procedures: PCI Exercise History: Sedentary Meds Held (24 hrs): carvedilol, isosorbide Stress Test Details Stress Test: Pharmacologic stress testing performed using 0.4 mg of regadenoson per 5 mL given IV over 10 seconds. Reason for pharmacologic stress test: physical limitation. HR Resting HR: 53 bpm Max Heart Rate (APMHR): 146 bpm Max HR Achieved: 84 bpm Target HR (85% APMHR): 124 bpm % of APMHR: 57 BP Resting BP: 182/[place] [address] CARDIAC NUCLEAR IMAGING REPORT Name: CORRINE LOPEZ Room: [facility]#: [id number] Admission: 06/07/21 Attend Phys: Stevo Morales Discharge: Date of : 49 Date of Service: 06/07/21 1610 Report #: [id number] Max BP: 158/87 mmHg ECG Resting ECG: Sinus Rhythm Stress ECG: Sinus Rhythm ST Change: Downsloping ST depression Maximum ST Deviation: 1.5 mm Arrhythmia: None Recovery ECG: Sinus Rhythm Recovery ST Change: Downsloping ST depression Recovery ST Deviation: 1.5 mm Recovery Arrhythmia: None Clinical Reason for Termination: Completed protocol Patient had no significant cardiac symptoms with Lexiscan infusion. Nurse Comments pt wqlks with a cane. cannot walk on treadmill Stress ECG Conclusion Baseline twelve-lead EKG shows sinus rhythm without significant ST segment abnormality. EKGs obtained during and post Lexiscan infusion show sinus rhythm with 1-1/[address] segment depression. There were no stress-induced arrhythmias. NM EXAM: Myocardial Perfusion REST/STRESS Imaging Protocol: Rest Tc-99m/Stress Tc-99m 1 day Resting Data Rest SPECT myocardial perfusion imaging was performed in supine position 30 minutes following the intravenous injection of 10.5 mCi of Tc-99m Sestamibi. Time of rest injection: 09 Date: 06/07/2021 The images were gated to evaluate regional wall motion and calculate left ventricular ejection fraction. Administration Route: IV Pharmacologic Stress Pharmacologic stress test was performed by injecting Regadenoson 0.4 mg IV push followed by the intravenous injection of 29.3 mCi of Tc-99m Sestamibi. Time of stress injection: 1150 Date: 06/07/2021 Administration Route: IV Gated Stress SPECT was performed 40 [place] [address] CARDIAC NUCLEAR IMAGING REPORT Name: CORRINE LOPEZ Room: [facility]#: [id number] Admission: 06/07/21 Attend Phys: Stevo Morales Discharge: Date of : 49 Date of Service: 06/07/21 1610 Report #: [id number] injection. The images were gated to evaluate regional wall motion and calculate left ventricular ejection fraction. Stress only was performed in the Supine position. Study Quality Study: Good Artifact: Mild Breast artifact Study Data At rest, the left ventricular ejection fraction was 70%.. Post stress, the left ventricular ejection was 68%.. TID = 1.10. Perfusion Perfusion images at rest show mild photopenia in the mid anterior wall. Perfusion images obtained post Lexiscan stress show a moderate sized moderate intensity defect in the mid to distal anterior wall. No other significant fixed or reversible defects are identified. Wall Motion Slight hypokinesis noted in the mid anterolateral wall. Global LV systolic function is preserved. Nuclear Conclusion ECG Findings: positive for ischemia Clinical Findings: negative for ischemia Nuclear Findings: positive for ischemia Exercise Capacity: not assessed Left Ventricular Function: Preserved Risk Study: high Based on ischemic findings on EKG and myocardial perfusion images this is considered a high risk study. <Conclusion> Baseline twelve-lead EKG shows sinus rhythm without significant ST segment abnormality. EKGs obtained during and post Lexiscan infusion show sinus rhythm with 1-1/[address] segment depression. There were no stress-induced arrhythmias. <ELECTRONICALLY SIGNED> By: Maged Curry MD, FACC 06/07/21 1610 161 161 Maged Curry MD, FACC /INF
== END ==
LOC: M.NUC 08:42
PROVIDERS: ATTEND Internal Medicine
DX: I25.9 Chronic ischemic heart disease, unspecified (principal); I25.10 Atherosclerotic heart disease of native coronary artery without angina pectoris; E11.9 Type 2 diabetes mellitus without complications; E78.2 Mixed hyperlipidemia; I10 Essential (primary) hypertension; Z79.4 Long term (current) use of insulin; Z95.5 Presence of coronary angioplasty implant and graft

== ENCOUNTER → 2021-06-14 | Outpatient (CLI) | payer OTHER ==
[2021-06-14 11:12] LABS: URINE BILIRUBIN NEGATIVE (Negative); URINE BLOOD NEGATIVE (Negative); URINE CLARITY CLEAR; URINE COLOR YELLOW; URINE GLUCOSE-RANDOM NEGATIVE (Negative); URINE KETONES NEGATIVE (Negative); URINE LEUKOCYTES-REFLEX 1+ (Negative); URINE NITRITE-REFLEX NEGATIVE (Negative); URINE PROTEIN NEGATIVE (Negative); URINE UROBILINOGEN 0.2 E.U./dl (0.2-1.0)
[2021-06-14 11:16] LABS: BACTERIA-REFLEX 1-9 Few /HPF (None Seen); CASTS None Seen /LPF (None Seen); CRYSTALS None Seen /LPF (None Seen); SQUAMOUS 0-3 Few /LPF (0-3); URINE RBC 0-2 Rare /HPF (0-2); URINE WBC-REFLEX 0-5 Rare /HPF (0-5)
== END ==
LOC: M.LAB 10:47
PROVIDERS: ATTEND Internal Medicine
DX: N39.0 Urinary tract infection, site not specified (principal)

== ENCOUNTER → 2021-06-25 | Outpatient (CLI) | payer OTHER ==
[~2021-06-25] VITALS: Ht 167.6 cm; Wt 106.6 kg
[~2021-06-25] MED LIST changes: +HUMALOG100 UNIT/1 SUBQ; +NORVASC10 MG PO; +NOVOLIN N100 UNIT/3 SUBQ
[2021-06-25 09:47] VITALS: BP 149/57
[2021-06-25 09:55] LABS: HEMATOCRIT 32.5 % (37.0-47.0); HEMOGLOBIN 10.8 gm/dL (12.0-15.0); MCH 27.3 pg (26.0-34.0); MCHC 33.4 g/dL (28.0-37.0); MCV 81.8 fL (80.0-100.0); MPV 7.9 fl. (7.2-11.1); RBC 3.97 mil/uL (4.20-5.00)
[2021-06-25 10:04] LABS: APTT 22.3 Seconds (25.0-31.3); PROTIME 11.1 Seconds (9.20-11.50)
[2021-06-25 10:06] LABS: ALBUMIN 3.5 g/dL (3.4-5.0); ALKALINE PHOSPHATASE 77 U/L (46-116); ANION GAP 5 mmol/L (7-16); BUN 15 mg/dL (7-18); CALCIUM 8.5 mg/dL (8.5-10.1); CHLORIDE 105 mmol/L (98-107); CHOLESTEROL 129 mg/dL (<200); CO2 31 mmol/L (21-32); CREATININE 1.1 mg/dL (0.6-1.3); GLUCOSE 226 mg/dL (70-99); HDL CHOLESTEROL 53 mg/dL (>40); LDL CHOLESTEROL 60 mg/dL (<100); POTASSIUM 4.5 mmol/L (3.5-5.1); SGOT 20 U/L (15-37); SGPT 32 U/L (30-65); SODIUM 141 mmol/L (136-145); TC:HDL 2.4 Ratio (Not establshd); TOTAL BILIRUBIN 0.6 mg/dL (<0.1-1.0); TOTAL PROTEIN 6.7 g/dL (6.4-8.2); TRIGLYCERIDE 83 mg/dL (<150); VLDL 17 mg/dL (<40)
[2021-06-25 10:19] LABS: SERUM ASSESSMENT Clear
[2021-06-25 11:30] VITALS: BP 143/72
[2021-06-25 11:45] VITALS: BP 141/67
[2021-06-25 12:00] VITALS: BP 129/65
[2021-06-25 12:15] VITALS: BP 141/60
--- NOTE | 2021-06-25 13:46 | CARD ---
[address] [address] CARDIAC CATH REPORT Name: CORRINE LOPEZ Room: [facility] Rich#: [id number] Admission: 06/25/21 Attend Phys: Chirag Robertson MD, Discharge: Date of : 49 Report #: [id number] THIS REPORT FOR: cc: Ezequiel Weston MD,Ezequiel Robertson,Chirag Cross MD [facility] ~ ADDENDUM APPROVED REPORT Study performed: 06/25/2021 10:28:22 Patient Details Patient Status: Out-Patient Room #: The patient is a 76 year-old female Event Personnel Alber Brody Reeves, Adam RTR Monitor, Genny Ramirez RN RN, Chirag Robertson Software Quality Assurance Engineer Procedures Performed Left Heart Cath w/or w/o Coronaries [id number] [facility] Hemostasis w/ Mynx Indication Positive stress test Risk Factors Obesity, Family History, Hypercholesterolemia, Hypertension, Diabetes Previous Procedures/Diagnoses Previous PCI Admission/Lab Medications/Medications given during procedure Midazolam (Versed) IV 1 mg, Lidocaine Subcut 20 ml Procedure Narrative The patient was brought electively to the Cardiac Catheterization Laboratory and was prepped and draped in a sterile manner. The right femoral was infiltrated with 2% Lidocaine subcutaneous anesthesia. IV conscious sedation was used throughout procedure with appropriate monitoring and was performed in the presence of a registered nurse who was an independent trained observer other than the physician performing the procedure. A [place] 6 FR sheath was inserted into the right femoral artery. Coronary angiography [place] [address] CARDIAC CATH REPORT Name: CORRINE LOPEZ Room: [facility]#: [id number] Admission: 06/25/21 Attend Phys: Chirag Robertson MD, Discharge: Date of : 49 Report #: [id number] coronary diagnostic catheters. The right coronary system was accessed and visualized with a Diagnostic 3DRC 5Fr catheter. The left coronary system was accessed and visualized with a Diagnostic JL4 6Fr catheter. The left ventricle was accessed and visualized with a Diagnostic Pitail 6Fr catheter. Left ventricular/Aortic Valve gradient assessed via catheter pullback. Left ventriculogram was performed in CHILEAN projection. Pre-demployment femoral angiogram was performed . Closure device was deployed with a 6 Fr Mynx. The patient tolerated the procedure well and there were no complications associated with the procedure. There was no hematoma. Intraoperative Conscious Sedation Sedation start time: 1041 Case end Time: 1114 Versed 1 mg Fluoro Time: 2.9 minutes Dose: DAP 24298 cGycm2 961.90 mGy Contrast Type and Amount: Omnipaque 90 ml Coronary Angiography The patient's coronary anatomy is right dominant. Diagnostic Cath Left Main 0% narrowing LAD Widely patent proximal and mid LAD stents with total occlusion of the first diagonal branch which fills via left to left collaterals Circumflex Moderate size nondominant vessel with 40% mid and 50% distal narrowing with 75% distal postero- lateral branch narrowing Right Coronary 40% proximal and mid vessel narrowing with 60% tubular narrowing beyond the acute margin Left Ventriculography The left ventricle is normal in size with normal contractility. The left ventricular ejection fraction is estimated to be 55-60%. Left ventricular wall motion abnormalities are Present. There is no mitral insufficiency. Subtle mid anterior hypokinesis is noted. Hemodynamics The aortic pressure is 147/56 mmHg with a mean of 93 mmHg. The left ventricular pressure is 157/9 mmHg with a mean of mmHg. The left ventricular end diastolic pressure is 18 mmHg. [place] [address] CARDIAC CATH REPORT Name: LOPEZCORRINE Kelly Room: [facility]#: [id number] Admission: 06/25/21 Attend Phys: Chirag Robertson MD, Discharge: Date of : 49 Report #: [id number] across the aortic valve upon pullback. Conclusion 1. Coronary artery disease characterized by the following: A widely patent proximal and mid LAD stents with total occlusion of the first diagonal which fills via left to left collaterals B 40% proximal and 50% mid circumflex narrowing with 75% distal postero- lateral branch narrowing C dominant right coronary artery with 40% proximal and mid vessel narrowing with 60% tubular narrowing beyond the acute margin 2. Normal global left ventricular systolic function, estimate ejection fraction of 55-60% with subtle mid anterior hypokinesis 3. Moderate elevation of left ventricular end-diastolic pressure at rest Recommendations Cardiac Risk Reduction Program Aggressive Medical Therapy Diagnostic Cath Approved by: Chirag Robertson MD Date/Time: 06/25/2021 13:34:27 <ELECTRONICALLY SIGNED> By: Chirag Robertson MD, [facility] 06/25/21 1346 1346 1346Joxi Robertson MD, [facility] /INF
--- NOTE | 2021-06-25 14:11 | EKG ---
[place] [address] ELECTROCARDIOGRAM REPORT Name: CORRINE LOPEZ Room: [facility]#: [id number] Admission: 06/25/21 Attend Phys: Stevo Morales Discharge: Date of : 49 Date of Service: 06/25/21 1006 Report #: [id number] THIS REPORT FOR: //name// [facility] Test Date: 2021-06-25 Test Time: 10:06:43 Pat Name: CORRINE LOPEZ Department: Room: Gender: F Library Supervisor: WINGATE : 1945 Requested By: Chirag Robertson Order Number: [id number] Reading MD: Chirag Robertson Measurements Intervals [place] Rate: 57 P: 68 MO: 222 QRS: -17 QRSD: 110 T: QT: 406 QTc: 396 Interpretive Statements Sinus rhythm Prolonged MO interval Borderline left axis deviation Abnormal R-wave progression, late transition Borderline T wave abnormalities Compared to ECG 05/30/2021 15:44:29 First degree AV block now present T-wave abnormality now present Myocardial infarct finding no longer present Electronically Signed On 06-25-2021 14:11:02 CDT by Chirag Robertson [email or web address] <ELECTRONICALLY SIGNED> By: Chirag Robertson MD, [facility] 06/25/21 1411 1006 1006 Chirag Robertson MD, [facility] /EPI
[2021-06-25 15:34] VITALS: BP 174/82
== END | disposition home or self-care (01) ==
LOC: M.CL 09:19
PROVIDERS: ATTEND Internal Medicine
DX: R94.39 Abnormal result of other cardiovascular function study (principal); I25.10 Atherosclerotic heart disease of native coronary artery without angina pectoris; I10 Essential (primary) hypertension; E11.9 Type 2 diabetes mellitus without complications; E78.00 Pure hypercholesterolemia, unspecified; E66.9 Obesity, unspecified; M19.90 Unspecified osteoarthritis, unspecified site; Z98.890 Other specified postprocedural states; Z79.899 Other long term (current) drug therapy; Z20.822 Contact with and (suspected) exposure to COVID-19; Z98.51 Tubal ligation status; Z90.49 Acquired absence of other specified parts of digestive tract; Z86.73 Personal history of transient ischemic attack (TIA), and cerebral infarction without residual deficits; Z88.2 Allergy status to sulfonamides; Z88.8 Allergy status to other drugs, medicaments and biological substances; Z79.01 Long term (current) use of anticoagulants